=== PATIENT | female | born 1950 | race Caucasian/White ===

== ENCOUNTER 2017-08-05 11:07 | Inpatient (IN) | payer OTHER ==
[2017-08-05] VITALS (7 sets, daily range): BP systolic 103–146; BP diastolic 53–85; PULSE 71–80; TEMP 37–37.1; O2SAT 94–96; BMI 32.2
[~2017-08-05] VITALS: Ht 162.6 cm; Wt 86.4 kg
[2017-08-05 11:31] LABS: HEMATOCRIT 38.9 % (37-47); HEMOGLOBIN 13.4 g/dL (12.0-16.0); MEAN CELL VOLUME 90.3 fL (80-100); MEAN CORPUSCULAR HEMOGLOBIN 31.1 pg (25-34); MEAN CORPUSCULAR HGB CONC 34.4 g/dl (32-36); MEAN PLATELET VOLUME 11.1 fL (7.4-10.4); PLATELET COUNT 194 K/uL (130-400); RED CELL DISTRIBUTION WIDTH CV 12.8 % (11.5-14.5); RED CELL DISTRIBUTION WIDTH SD 42.2 fL (36.4-46.3); WHITE BLOOD COUNT 6.32 K/uL (4.8-10.8)
[2017-08-05 11:40] LABS: PTT PATIENT 27.2 SECONDS (21.0-31.0)
--- NOTE | 2017-08-05 11:43 | DIAGNOSTIC IMAGING REPORT ---
CHEST ONE VIEW PORTABLE CLINICAL HISTORY: A02 - chest pain COMPARISON STUDY: No previous studies for comparison. FINDINGS: The bones soft tissues and hemidiaphragms are normal. The cardiomediastinal silhouette is normal. The lungs are clear. The pulmonary vasculature is normal. IMPRESSION: Negative chest. The above report was generated using voice recognition software. It may contain grammatical, syntax or spelling errors. Electronically signed by: Mario Moon M.D. 08/05/2017 11:42 AM Dictated Date/Time: 08/05/2017 11:33 AM
[2017-08-05 11:55] LABS: ALBUMIN 3.8 gm/dl (3.4-5.0); CALCIUM 9.6 mg/dl (8.5-10.1); CREATININE 0.81 mg/dl (0.60-1.20); TOTAL PROTEIN 7.6 gm/dl (6.4-8.2)
[2017-08-05 11:56] LABS: CKMB 2.1 ng/ml (0.5-3.6)
[2017-08-05] MEDS ORDERED: FURO-85 PO (12:28)
[2017-08-05] MEDS ORDERED: COLC1CAP3 PO (12:28)
[2017-08-05] MEDS ORDERED: SUCR1TAB29 PO (12:28)
[2017-08-05] MEDS ORDERED: PANT40TA PO (12:28)
[2017-08-05] MEDS ORDERED: EMPA1TAB PO (12:28)
[2017-08-05] MEDS ORDERED: SERT-234 PO (12:28)
[2017-08-05] MEDS ORDERED: ATOR-24 PO (12:28)
[2017-08-05] MEDS ORDERED: LISI-526 PO (12:28)
[2017-08-05] MEDS ORDERED: NVLG SQ (12:28)
[2017-08-05] MEDS ORDERED: INSDGI SC (12:28)
[2017-08-05] MEDS ORDERED: METF-384 PO (12:28)
[2017-08-05] MEDS ORDERED: ALLO100T PO (12:28)
--- NOTE | 2017-08-05 12:46 | EMERGENCY ROOM VISIT NOTE ---
History Report prepared by Odilon: Alia Lion Under the Supervision of: Dr. Yoshi Boss M.D. First contact with patient: 11:08 Chief Complaint: CHEST PAIN Stated Complaint: CHEST PAIN Nursing Triage Summary: Patient arrives via ems from [facility] where patient saw her PCP. PT complaining of "chest pressure for the past couple months on and off, I have been getting more SOB on exertion." denies radiation, denies N/V. [facility] staff admin. 4 baby Aspirin and patient has received total of 4 nitro tablets. PMH: CAD with 30% blockage, unsure what vessel. History of Present Illness The patient is a 67 year old female who presents to the Emergency Room with complaints of constant chest pressure beginning this morning. The patient arrives via EMS from [facility] where she saw her PCP. She notes indigestion and shortness of breath but denies nausea or vomiting. The patient had a catheterization seven years which showed a 30% blockage. The patient had 4 baby Aspirin and 4 nitro tablets in route to ED. The nitroglycerin helped relieve some of her chest pain. The patient had a history of neuropathy and diabetes. Source of History: patient Onset: this morning Position: chest Quality: pressure Timing: constant Modifying Factors (Relieving): other (nitro) Associated Symptoms: + chest pain, + SOB, No nausea, No vomiting Review of Systems All systems have been listed, reviewed, and are negative other than those previously mentioned. Please see Additional Medical History Sheet. Past Medical & Surgical Medical Problems: (1) Asthma (2) Chest pain (3) Diabetes (4) Hypertension (5) Neuropathy Family History Cancer FH: diabetes mellitus FH: hypertension FH: seizures Social History Smoking Status: Former Smoker Smokeless Tobacco Use: No Alcohol Use: none Drug Use: none Housing Status: lives with family Occupation Status: retired Current/Historical Medications Scheduled Allopurinol (Zyloprim), 1 TAB PO DAILY Aspirin (Aspirin EC Low Dose), 81 MG PO DAILY Atorvastatin (Lipitor), 1 TAB PO DAILY Colchicine (Colchicine), 0.6 MG PO BID Empagliflozin (Jardiance), 10 MG PO DAILY Fluticasone Prop/Salmeterol (Advair Diskus 250/50 60 Dose), 1 PUFF INH BID Furosemide (Lasix), 1 TAB PO DAILY Gabapentin (Neurontin), 1 CAP PO TID Insulin Aspart (Novolog), 55 UNITS SQ TIDM Insulin Glargine (Lantus), 55 UNITS SC BID Lisinopril (Prinivil), 30 MG PO DAILY Metformin Hcl (Glucophage), 1,000 MG PO BID Pantoprazole (Protonix), 40 MG PO DAILY Sertraline (Zoloft), 1 TAB PO DAILY Sucralfate (Carafate), 1 TAB PO ACHS Scheduled PRN Albuterol Sulfate (Proair Respiclick), 2 PUFFS INH QID PRN for SOB/Wheezing Polyethylene Glycol 3350 (Miralax), 17 GM PO BID PRN for Constipation Allergies Coded Allergies: No Known Allergies (Unverified , 08/05/17) Physical Exam Vital Signs Date Time Temp Pulse Resp B/P (MAP) Pulse Ox O2 Delivery O2 Flow Rate FiO2 08/05/17 13:48 73 16 164/98 95 Room Air 08/05/17 12:12 79 18 134/78 95 Room Air 08/05/17 12:02 76 08/05/17 11:21 94 Room Air 08/05/17 11:21 87 18 153/68 94 Room Air 08/05/17 11:14 94 Room Air 08/05/17 11:14 36.9 87 18 153/68 94 Room Air 08/05/17 11:14 94 Room Air 08/05/17 11:12 80 18 153/68 95 Room Air Physical Exam GENERAL: Patient awake, alert, oriented x 3. Patient follows commands. Patient does not appear toxic. Patient is adequately hydrated and well- nourished. SKIN: No erythema, pallor, cyanosis or rash HEENT: Normal head, pupils equal, reactive to light and accommodation. LUNGS: Clear to auscultation. No wheezes, no rales, no rhonchi. HEART: No murmurs. No gallops. No rubs ABDOMEN: Obese. No masses, no rebound, no hepatomegaly or splenomegaly. EXTREMITIES: Vague tenderness in lower extremities which patient attributes to her neuropathy. No signs of trauma. No pedal or pretibial edema. No calf or thigh tenderness. NEUROLOGIC: Cranial nerves II-XII within normal limits. No gross motor sensory function deficits. Medical Decision & Procedures Laboratory Results 08/05/17 11:15 08/05/17 11:15 Test 12/27/17 11:15 08/05/17 13:08 Red Blood Count 4.31 M/uL (4.2-5.4) Mean Corpuscular Volume 90.3 fL (80-100) Mean Corpuscular Hemoglobin 31.1 pg (25-34) Mean Corpuscular Hemoglobin Concent 34.4 g/dl (32-36) RDW Standard Deviation 42.2 fL (36.4-46.3) RDW Coefficient of Variation 12.8 % (11.5-14.5) Mean Platelet Volume 11.1 fL (7.4-10.4) Prothrombin Time 10.0 SECONDS (9.0-12.0) Prothromb Time International Ratio 1.0 (0.9-1.1) Activated Partial Thromboplast Time 27.2 SECONDS (21.0-31.0) Partial Thromboplastin Ratio 1.0 Anion Gap 10.0 mmol/L (3-11) Est Creatinine Clear Calc Drug Dose 72.4 ml/min Estimated GFR () 87.1 Estimated GFR (Non- 75.2 BUN/Creatinine Ratio 27.5 (10-20) Calcium Level 9.6 mg/dl (8.5-10.1) Total Bilirubin 0.4 mg/dl (0.2-1) Aspartate Amino Transf (AST/SGOT) 25 U/L (15-37) Alanine Aminotransferase (ALT/SGPT) 44 U/L (12-78) Alkaline Phosphatase 97 U/L (45-117) Total Creatine Kinase 95 U/L (26-192) Creatine Kinase MB 2.1 ng/ml (0.5-3.6) Creatine Kinase MB Ratio 2.2 (0-3.0) Total Protein 7.6 gm/dl (6.4-8.2) Albumin 3.8 gm/dl (3.4-5.0) Globulin 3.8 gm/dl (2.5-4.0) Albumin/Globulin Ratio 1.0 (0.9-2) Beta-Hydroxybutyric Acid 1.74 mg/dL (0.2-2.81) Bedside Troponin I < 0.030 ng/ml (0-0.045) Laboratory results as stated above per my review. Medications Administered Medications (Trade) Dose Ordered Sig/Natali Route Start Time Stop Time Status Last Admin Dose Admin Heparin Sodium/ Dextrose (Heparin 25,000 Unit/500ml D5W) 25,000 unit STK-MED ONCE .ROUTE 08/05/17 14:20 08/05/17 14:21 DC 08/05/17 14:23 25,000 UNIT ECG Indication: chest pain Rate (beats per minute): 87 Rhythm: sinus rhythm Findings: PAC, ST depression (in II, III, avF, V5 and V6 ) ED Course 1228: Past medical records reviewed. The patient was evaluated in room A2. A complete history and physical examination was performed. 1318: Discussed the patient's case with Amada TOLEDO. The patient will be evaluated for further management. Medical Decision Differential diagnosis: Etiologies such as cardiac ischemia, aortic dissection, pulmonary embolism, pneumonia, pneumothorax, musculoskeletal, infections, pericarditis, myocarditis , esophageal rupture, gastrointestinal, as well as others were entertained. The patient is here with chest pain partially relieved by nitroglycerin. The patient was seen at [facility] earlier today and sent here because of the chest pain. The patient had a stress test about one week ago. She also had a prior catheterization. She has known cardiovascular disease. Multiple labs, EKG and imaging were obtained. Please see above. The patient has some minimal ST depression in her inferior and lateral leads. 2 troponins were obtained and negative. In light of her significant history she will require further evaluation in the hospital. I discussed care with the hospitalist. I also discussed care with the patient and significant other. Medication Reconcilliation Current Medication List: was personally reviewed by me Blood Pressure Screening Patient's blood pressure: Elevated blood pressure Blood pressure disposition: Referred to PCP (follow up with hospitalist ) Consults Time Called: 1315 Consulting Physician: Amada TOLEDO Returned Call: [phone] Discussed the patient's case with Amada TOLEDO. The patient will be evaluated for further management. Impression Primary Impression: Acute coronary syndrome Scribe Attestation The scribe's documentation has been prepared under my direction and personally reviewed by me in its entirety. I confirm that the note above accurately reflects all work, treatment, procedures, and medical decision making performed by me. Departure Information Dispostion Being Evaluated By Hospitalist Patient Instructions My [facility]
[2017-08-05] MEDS ORDERED: ONDANSETRON INJ 2 MG/ML 2 ML VIAL IV PRN (14:00)
[2017-08-05] MEDS ORDERED: ACETAMINOPHEN 325 MG TAB PO PRN (14:00)
[2017-08-05] MEDS ORDERED: ADVIN25/60 INH (14:02)
[2017-08-05] MEDS ORDERED: ALBU18002 INH (14:02)
[2017-08-05] MEDS ORDERED: POLY335019 PO (14:02)
[2017-08-05] MEDS ORDERED: ASPI-320 PO (14:02)
[2017-08-05] MEDS ORDERED: GABA400C PO (14:02)
[2017-08-05] MEDS ORDERED: PHARMACY GLYCEMIC MGMT CONSULT PRN (14:14)
[2017-08-05] MEDS ORDERED: GLUCOSE 40% GEL 15 GM TUBE PO PRN (14:15)
[2017-08-05] MEDS ORDERED: GLUCAGON FOR INJ 1 MG VIAL SQ PRN (14:15)
[2017-08-05] MEDS ORDERED: DEXTROSE 50% 50 ML SYR IV PRN (14:15)
[2017-08-05] MEDS ORDERED: GLUCOSE 10 TABS/TUBE PO PRN (14:15)
[2017-08-05] MEDS ORDERED: INSULIN HUMAN REGULAR PER UNIT 10 UNITS in SYRINGE 9.9 ML IV STA (14:16)
[2017-08-05] MEDS ORDERED: HEPARIN 25000 UNIT/500 ML D5W ONE (14:20)
[2017-08-05] MEDS ORDERED: METOPROLOL TARTRATE 25 MG TAB PO STA (14:24)
[2017-08-05] MEDS ORDERED: NovoLOG PER UNIT CHARGE SC STA (14:30)
--- NOTE | 2017-08-05 14:38 | Pharmacy Progress Note ---
Glycemic Control Intl Consult Date of Service Aug 05, 2017. Scope Glycemic Pharmacist consulted by Alicia Grande PA-C on 08/05/17 for glycemic control and to write orders per [facility] inpatient glycemic control protocol Objective Weight (Kilograms): 88.000 Accuchecks BSG (last 24hrs): Test 08/05/17 11:15 Random Glucose 383 mg/dl (70-99) Laboratory Data (last 24hrs) Test 08/05/17 11:15 Anion Gap 10.0 mmol/L BUN/Creatinine Ratio 27.5 Blood Urea Nitrogen 22 mg/dl Creatinine 0.81 mg/dl Potassium Level 4.0 mmol/L Sodium Level 133 mmol/L White Blood Count 6.32 K/uL Recent Pertinent Medications Outpatient Anti-diabetic Regimen: * Lantus 55 units SQ BID + Novolog 55 units SQ TIDM (doses confirmed with [email or web address], questionable compliance) * Metformin 1000 mg PO BID + empagliflozin 10 mg PO daily * A1c = 12.4 % (per provider history) Assessment & Plan ASSESSMENT: * 67 yr old T2DM female admitted with CP and hyperglycemia. * Severe hyperglycemia at time of admission, 383 mg/dL. Pt given one time IV bolus of regular insulin. * Patient takes significant doses of insulin as an outpatient (~275 units/day) plus orals with poor glycemic control evidenced; A1c of 12.4%. Patient did not take am Lantus dose today, therefore I have ordered STA dose of 55 units upon arrival to floor. I will utilize a Lantus dose per scale at HS since patient is NPO after midnight and compliance with home regimen is questionable. * Will utilize higher goal range initially per patient may experience hypoglycemia at a higher BSG value since A1c is extremely elevated. PLAN FOR INPATIENT GLYCEMIC CONTROL: * Holding outpatient oral diabetes medications * Regular insulin 10 units IV x 1 (@ ER) * Basal insulin * Lantus 55 units SQ TYRELL upon arrival to floor * Lantus 25-45 units SQ HS * 25 units for BSG <110, 35 units for BSG 110-180, 45 units for BSG > 180 * Correctional Insulin with NOVOLOG per scale ACHS or Q6hrs while NPO * Goal Range: Low 120 mg/dL - High 150 mg/dL * Correction Factor: 10 mg/dL/unit * Nutritional / Prandial insulin per carb ratio of 1 unit per 3 grams CHO consumed * Please note that the plan above was derived based on current level of insulin resistance and hospital stress. These recommendations are appropriate for inpatient admission only. Plan of care upon discharge will need to be reassessed to avoid potential outpatient hypo/hyperglycemia. Thank you.
--- NOTE | 2017-08-05 14:42 | CARDIOLOGY CONSULTATION ---
DATE OF CONSULTATION: 08/05/2017 CONSULTATION FOR: [facility] REASON FOR CONSULTATION: Chest pain with an abnormal stress test. HISTORY OF PRESENT ILLNESS: This is a 67-year-old female diabetic, who is not well controlled. Her last hemoglobin A1c was 12. She has been followed by Dr. Payton. Recently, she was having some dyspnea and mild chest discomfort and a nuclear stress test was ordered. That study was completed at [facility]. The report is scanned to [facility] and indicates a medium sized defect in the anterior myocardium, suggesting ischemia. The patient came for a followup today at the clinic and was seen by Vaishnavi Dent. She states that on the ride over to the clinic, she began to have chest pressure and discomfort. She was given 1 sublingual nitroglycerin, which dissipated her chest pain. She was then transferred to the Emergency Department. She still has chest pain, which is 1-2/10, but she appears to be quite comfortable. Her point of care troponin was negative. Her EKG here suggests an old anterior septal wall myocardial infarction and nonspecific ST and T-wave changes. She denies shortness of breath. She has had no dizziness or lightheadedness. ALLERGIES: No known medical allergies. PAST MEDICAL HISTORY: As outlined above, the patient is a type 2 diabetic, who has in the past not been well controlled. She has diabetic polyneuropathy and diabetic nephropathy with proteinuria. She has been treated for hypertension. She has a history of obstructive sleep apnea and GERD. She has a remote history of cigarette smoking and according to records, has mild COPD. FAMILY MEDICAL HISTORY: Significant for diabetes on her father side and heart disease on her mother side. SOCIAL HISTORY: She is currently a nonsmoker. She stopped in 2000. REVIEW OF SYSTEMS: A 10-point review of systems is negative except for the history of chief complaint. PHYSICAL EXAMINATION: GENERAL: She is alert and oriented, resting comfortably. VITAL SIGNS: Blood pressure is 130/80 and pulse is regular at 70 beats per minute. She is afebrile. HEENT: She is normocephalic. Pupils are equal and reactive to light. Extraocular muscles are intact bilaterally. NECK: The neck veins are flat. Carotids have good upstrokes bilaterally without bruits. Thyroid is nonpalpable. RESPIRATORY: Breath sounds equal bilaterally and clear to auscultation. CARDIOVASCULAR: Heart has a regular rhythm. Normal S1 and S2. No S3 or S4. No cardiac rubs or murmurs. GASTROINTESTINAL: Abdomen is soft and nontender without organomegaly. EXTREMITIES: Free of edema, digit clubbing, or cyanosis. NEUROLOGIC: Grossly intact. SKIN: Warm to touch. LYMPH NODES: Negative to palpation. IMPRESSION: 1. Chest pain, most likely angina. 2. Recent abnormal pharmacologic nuclear stress test with an anterior reversible defect. 3. EKG shows an old anterior septal wall myocardial infarction. 4. 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 5. Diabetes mellitus. 6. Mild chronic obstructive pulmonary disease. 7. Obstructive sleep apnea. RECOMMENDATIONS: The patient appears to be comfortable at this point. I would recommend that we admit her and start her on intravenous heparin. I would also start her on a beta chasity and nitro paste. Her first set of cardiac markers were negative and her EKG does not show any significant acute changes. Unless her clinical course worsens, we will plan on performing cardiac catheterization in the morning. I have explained the risks, benefits and intent of the procedure to the patient including the potential for catheter based intervention such as balloon angioplasty and intracoronary stenting. We will have further recommendations following the above.
--- NOTE | 2017-08-05 15:25 | NUR ---
arrived from the ED via liter for admission to room 205, awake and alert, ambulated to bed, continues to complain of some chest pressure 3/10, BP 146/85, skin warm and dry, color pink, respirations non-labored, bilateral breath sounds clear, O2 saturation on room air is 95%, conveyor monitor applied, admission nursing assessment complete, code word established, fall safety paper signed
[2017-08-05] MEDS ORDERED: INSULIN GLARGINE SC ONE (15:30)
[2017-08-05] MEDS ORDERED: HEPARIN 25,000 UNIT/500ML D5W 500 ML IV PRN (16:00)
[2017-08-05] MEDS: NITROGLYCERIN OINT 2% 1GM PACKET EXT SCH ×2 (17:25→23:36)
[2017-08-05] MEDS: SUCRALFATE 1 GM TAB PO SCH ×2 (17:25→20:45)
--- NOTE | 2017-08-05 17:27 | History and Physical ---
History & Physical Date & Time of Service: Aug 05, 2017 ~ 13:30 Chief Complaint: Chest Pain Primary Care Physician: Estela Fields D.O. History of Present Illness 67 year old female who was referred to the ED from the cardiology office for chest pain. Patient reports a long standing history of chest pain and exertional shortness of breath for the past several months. Patient underwent stress testing last week that was abnormal suggesting anterior ischemia. Patient was on her way to a scheduled cardiology appointment today to discuss the results when she developed chest pain in the car. Patient reports this episode was the most severe she has experienced. She reports it was located midsternally and describes it as a pressure. She rated it #6/10. No radiation of the pain into the neck, jaw, or arm. She reports associated lightheadedness and dizziness. No syncopal events. She denies nausea and diaphoresis. She was given SL nitro in the cardiology office and has significant improvement in the pain however not resolution. EKG was obtained that showed ST depressions in the inferior leads. She was then referred to the ED for further evaluation. Patient reports she otherwise has been feeling well recently. She denies lower extremity edema and orthopnea. No fevers or chills. She denies abdominal pain, vomiting, or diarrhea. No urinary symptoms. In the ED, EKG was obtained showing mild ST depressions in the anterolateral leads. Initial troponin is negative. Patient is hemodynamically stable. 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 A 30% ostial right coronary artery stenosis reported otherwise no significant obstructive disease reported. Status: Chronic (2) History of carpal tunnel release Status: Chronic (3) Hx of tonsillectomy Status: Chronic (4) S/P MIKE (total abdominal hysterectomy) Status: Chronic Family History Stroke MOTHER BROTHER Social History Smoking Status: Former Smoker Alcohol Use: none Immunizations History of Tetanus Vaccine?: Yes Tetanus Immunization Date: Jul 20, 2007 History of Pneumococcal: Yes Pneumococcal Date: Jun 08, 2015 Allergies Coded Allergies: No Known Allergies (Unverified , 08/05/17) Home Medications Scheduled Allopurinol (Zyloprim), 1 TAB PO DAILY Aspirin (Aspirin EC Low Dose), 81 MG PO DAILY Atorvastatin (Lipitor), 1 TAB PO DAILY Colchicine (Colchicine), 0.6 MG PO BID Empagliflozin (Jardiance), 10 MG PO DAILY Fluticasone Prop/Salmeterol (Advair Diskus 250/50 60 Dose), 1 PUFF INH BID Furosemide (Lasix), 1 TAB PO DAILY Gabapentin (Neurontin), 1 CAP PO TID Insulin Aspart (Novolog), 55 UNITS SQ TIDM Insulin Glargine (Lantus), 55 UNITS SC BID Lisinopril (Prinivil), 30 MG PO DAILY Metformin Hcl (Glucophage), 1,000 MG PO BID Pantoprazole (Protonix), 40 MG PO DAILY Sertraline (Zoloft), 1 TAB PO DAILY Sucralfate (Carafate), 1 TAB PO ACHS Scheduled PRN Albuterol Sulfate (Proair Respiclick), 2 PUFFS INH QID PRN for SOB/Wheezing Polyethylene Glycol 3350 (Miralax), 17 GM PO BID PRN for Constipation Review of Systems ROS per HPI, all other systems reviewed and negative Physical Exam Vital Signs Date Time Temp Pulse Resp B/P (MAP) Pulse Ox O2 Delivery O2 Flow Rate FiO2 08/05/17 15:39 37.0 71 20 146/85 95 Room Air 08/05/17 15:16 36.9 82 18 152/75 94 08/05/17 14:49 82 18 152/75 94 Room Air 08/05/17 13:48 73 16 164/98 95 Room Air 08/05/17 12:12 79 18 134/78 95 Room Air 08/05/17 12:02 76 08/05/17 11:21 94 Room Air 08/05/17 11:21 87 18 153/68 94 Room Air 08/05/17 11:14 94 Room Air 08/05/17 11:14 36.9 87 18 153/68 94 Room Air 08/05/17 11:14 94 Room Air 08/05/17 11:12 80 18 153/68 95 Room Air General Appearance: WD/WN, no apparent distress Head: normocephalic, atraumatic Eyes: normal inspection, EOMI, sclerae normal ENT: hearing grossly normal, + pertinent finding (mucous membranes moist) Neck: supple, no JVD, trachea midline Respiratory/Chest: lungs clear, normal breath sounds, no respiratory distress Cardiovascular: regular rate, rhythm, no edema, normal peripheral pulses Abdomen/GI: normal bowel sounds, non tender, soft, no organomegaly Extremities/Musculoskelatal: normal inspection, no calf tenderness Neurologic/Psych: no motor/sensory deficits, alert, normal mood/affect, oriented x 3 Skin: normal color, warm/dry Diagnostics Laboratory Results Results Past 24 Hours Test 08/05/17 11:15 08/05/17 11:24 08/05/17 13:08 08/05/17 16:21 Range/Units White Blood Count 6.32 4.8-10.8 K/uL Red Blood Count 4.31 4.2-5.4 M/uL Hemoglobin 13.4 12.0-16.0 g/dL Hematocrit 38.9 37-47 % Mean Corpuscular Volume 90.3 80-100 fL Mean Corpuscular Hemoglobin 31.1 25-34 pg Mean Corpuscular Hemoglobin Concent 34.4 32-36 g/dl RDW Standard Deviation 42.2 36.4-46.3 fL RDW Coefficient of Variation 12.8 11.5-14.5 % Platelet Count 194 130-400 K/uL Mean Platelet Volume 11.1 7.4-10.4 fL Prothrombin Time 10.0 9.0-12.0 SECONDS Prothromb Time International Ratio 1.0 0.9-1.1 Activated Partial Thromboplast Time 27.2 21.0-31.0 SECONDS Partial Thromboplastin Ratio 1.0 Sodium Level 133 136-145 mmol/L Potassium Level 4.0 3.5-5.1 mmol/L Chloride Level 99 98-107 mmol/L Carbon Dioxide Level 24 21-32 mmol/L Anion Gap 10.0 3-11 mmol/L Blood Urea Nitrogen 22 7-18 mg/dl Creatinine 0.81 0.60-1.20 mg/dl Est Creatinine Clear Calc Drug Dose 72.4 ml/min Estimated GFR () 87.1 Estimated GFR (Non- 75.2 BUN/Creatinine Ratio 27.5 10-20 Random Glucose 383 70-99 mg/dl Calcium Level 9.6 8.5-10.1 mg/dl Total Bilirubin 0.4 0.2-1 mg/dl Aspartate Amino Transf (AST/SGOT) 25 15-37 U/L Alanine Aminotransferase (ALT/SGPT) 44 12-78 U/L Alkaline Phosphatase 97 45-117 U/L Total Creatine Kinase 95 26-192 U/L Creatine Kinase MB 2.1 0.5-3.6 ng/ml Creatine Kinase MB Ratio 2.2 0-3.0 Total Protein 7.6 6.4-8.2 gm/dl Albumin 3.8 3.4-5.0 gm/dl Globulin 3.8 2.5-4.0 gm/dl Albumin/Globulin Ratio 1.0 0.9-2 Beta-Hydroxybutyric Acid 1.74 0.2-2.81 mg/dL Bedside Troponin I < 0.030 < 0.030 0-0.045 ng/ml Bedside Glucose 146 70-90 mg/dl Diagnostic Radiology CXR IMPRESSION: Negative chest. 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 Grajeda - planning on cardiac cath tomorrow DM - uncontrolled, hgb a1c 12.4 07/17/17 - did not take any insulin today - glucose 383 - on large amounts of insulin and oral agents and home - will hold oral agents while hospitalized and utilize basal / bolus / SSI while hospitalized HTN - BP controlled, continue lisinopril and furosemide - starting metoprolol as above COPD - stable, no signs of acute exacerbation - continue home inhalers GERD - continue PPI and Carafate DVT PROPHYLAXIS - on heparin gtt DISPO - In my clinical judgment this beneficiary meets acute admission criteria, established by [facility], that includes being hospitalized through two midnights. Attending Addendum: The patient was seen and examined Has been complaining of Exertional Chest pain for a while Now having pain at rest associated with SOB and Swetting O/E Minimal distress at rest Hemodynamically stable Chest-clear to auscultate bilaterally Heart-regular Abdomen-benign Extremities-negative for any edema Labs and imaging studies were reviewed Has Angina with EKG changes Will start Heparin,BB and Nitro Likely to have Cardiac Cath tomorrow Agree with the assessment and plan. Dr Jayda Horowitz Advanced Directives Existing Living Will: No Existing Power of Grain Trader: Yes VTE Prophylaxis VTE Risk Assessment Done? Y/N: Yes Risk Level: Moderate
--- NOTE | 2017-08-05 17:30 | NUR ---
dangled for supper ate 100% of meal, tolerated well
[2017-08-05] MEDS: INSULIN ASPART 100 UNITS/ML 3 ML PEN SC SCH ×3 (17:50→23:45)
--- NOTE | 2017-08-05 19:35 | NUR ---
complains of 7/10 chest pressure with numb feeling in right arm, state EKG done, BP 137/71 SL Nitro given as ordered nasal O2 applied at 2L/min.
[2017-08-05] MEDS: NITROGLYCERIN 0.4 MG SL PER TAB CHARGE SL PRN ×3 (19:42→19:55)
--- NOTE | 2017-08-05 19:47 | NUR ---
BP 109/57 pain decreased to 5/10 SL Nitro given
--- NOTE | 2017-08-05 19:54 | NUR ---
BP 103/58 pain easing but still 4/10
[2017-08-05] MEDS ORDERED: MoRPHine SULFATE 2 MG/ML CARP IV PRN (20:15)
--- NOTE | 2017-08-05 20:15 | NUR ---
Dr. Horowitz aware of episode of chest pain and treatment given, new order received
[2017-08-05] MEDS: FLUTICASONE/SALMETEROL 250/50 (ADVAIR) 14 PUFF/1 INHALER INH SCH (20:45)
--- NOTE | 2017-08-05 20:45 | NUR ---
resting in bed states pain has eased but arm still 3/10 discomfort, medicated with Morphine 2 mg IV as ordered
[2017-08-05] MEDS: COLCHICINE 0.6 MG TAB PO SCH (20:46)
[2017-08-05] MEDS: GABAPENTIN 400 MG CAP PO SCH (20:46)
[2017-08-05 20:51] LABS: CKMB 1.6 ng/ml (0.5-3.6)
[2017-08-05 20:53] LABS: PTT PATIENT 38.5 SECONDS (21.0-31.0)
[2017-08-05] MEDS ORDERED: INSULIN GLARGINE SC SCH (21:00)
[2017-08-05] MEDS ORDERED: METOPROLOL TARTRATE 25 MG TAB PO SCH (21:00)
--- NOTE | 2017-08-05 21:20 | NUR ---
resting in bed with eyes closed, verbalizes good pain relief, will continue to monitor
[2017-08-05] MEDS ORDERED: HEPARIN IV BOLUS 5,000 UNIT in SYRINGE 0 ML IV ONE (21:30)
[2017-08-05] MEDS: METOPROLOL TARTRATE 25 MG TAB PO SCH (22:30)
[2017-08-05] MEDS: SODIUM CHLORIDE 0.9% 1000ML 1,000 ML IV SCH (23:36)
[2017-08-06] VITALS (18 sets, daily range): BP systolic 102–154; BP diastolic 52–89; PULSE 61–78; TEMP 36.5–37.2; O2SAT 89–100; Ht 162.6 cm; Wt 86.4 kg
--- NOTE | 2017-08-06 00:28 | NUR ---
Pt Alert and oriented when awoken. Asleep in bed at this time. 3L Nasal Canula with oxygen saturation of 96%. No insulin was needed at 0000 due to a blood sugar of 148. Pt is not complaining of any chest pain at this time. Normal Sinus Rhythm on Monitor. Heparin Rate is 29ml/hr or 1450u/hr. PTT is scheduled for 3:30am. NSS running at 88ml/hr. Pt is NPO for Cath surgery in the morning. Moderate Sedation and Patient Check List started. Call saenz is within reach. Will continue to monitor.
[2017-08-06 00:56] LABS: CKMB 1.5 ng/ml (0.5-3.6)
[2017-08-06] MEDS ORDERED: INSULIN ASPART 100 UNITS/ML 3 ML PEN SC SCH (03:00)
[2017-08-06 03:52] LABS: BASO % 0.4 %; BASO ABS # 0.03 K/uL (0-0.2); EOS % 2.3 %; EOS ABS # 0.17 K/uL (0-0.5); HEMATOCRIT 38.4 % (37-47); HEMOGLOBIN 13.2 g/dL (12.0-16.0); IG# 0.02 K/uL (0.00-0.02); LYMPH % 48.8 %; LYMPH ABS # 3.62 K/uL (1.2-3.4); MEAN CELL VOLUME 90.6 fL (80-100); MEAN CORPUSCULAR HEMOGLOBIN 31.1 pg (25-34); MEAN CORPUSCULAR HGB CONC 34.4 g/dl (32-36); MEAN PLATELET VOLUME 11.4 fL (7.4-10.4); MONO % 6.7 %; NEUT % 41.5 %; NEUT ABS # 3.08 K/uL (1.4-6.5); PLATELET COUNT 172 K/uL (130-400); RED CELL DISTRIBUTION WIDTH CV 12.9 % (11.5-14.5); RED CELL DISTRIBUTION WIDTH SD 42.2 fL (36.4-46.3); WHITE BLOOD COUNT 7.42 K/uL (4.8-10.8)
[2017-08-06 04:16] LABS: PTT PATIENT 93.7 SECONDS (21.0-31.0)
[2017-08-06 04:17] LABS: CALCIUM 9.1 mg/dl (8.5-10.1); CREATININE 0.69 mg/dl (0.60-1.20); POTASSIUM 3.5 mmol/L (3.5-5.1)
--- NOTE | 2017-08-06 04:40 | NUR ---
Pt Alert and oriented when awoken. Asleep in bed at this time. 3L Nasal Canula with oxygen saturation of 98%. 2 units of Novalog was given at 3:00 due to a blood sugar of 169. Pt is not complaining of any chest pain at this time, just states that she is uncomfortable. Normal Sinus Rhythm on Monitor. Heparin Rate is being held for 60 minutes due to a PTT of 93.7. Provider will be notified due to surgery today. Pt will be restarted on the Heparin Drip at 5:20 at 26ml/hr or 1300 units/hr. PTT is in for 11:30am per protocol. NSS running at 88ml/hr. Pt is NPO for Cath surgery in the morning. Moderate Sedation and Patient Check List started. Call saenz is within reach. Will continue to monitor.
[2017-08-06] MEDS: SUCRALFATE 1 GM TAB PO SCH ×4 (05:55→21:32)
[2017-08-06] MEDS: NITROGLYCERIN OINT 2% 1GM PACKET EXT SCH ×2 (05:55→11:56)
[2017-08-06] MEDS: INSULIN ASPART 100 UNITS/ML 3 ML PEN SC SCH ×4 (06:07→21:36)
--- NOTE | 2017-08-06 08:00 | NUR ---
A: Awake, alert and oriented X4 resting quietly in bed in no acute distress. Initial assessment completed, refer to EMR for details. NSR on cardiac sonographer. Assisted out of bed to toilet with min assist of one to void. Heparin continues to infuse as per protocol. Remains NPO pending cardiac catheter today. Dr. Johns notified of need to adjust lantus insulin, new orders received. Call saenz within easy reach. Will continue to monitor.
[2017-08-06] MEDS ORDERED: NURSING VERBAL MED ORDER ONE ×2 (08:45→15:45)
[2017-08-06] MEDS: FLUTICASONE/SALMETEROL 250/50 (ADVAIR) 14 PUFF/1 INHALER INH SCH ×2 (08:47→21:32)
[2017-08-06] MEDS: COLCHICINE 0.6 MG TAB PO SCH ×2 (08:49→21:33)
[2017-08-06] MEDS: METOPROLOL TARTRATE 25 MG TAB PO SCH ×2 (08:49→21:33)
[2017-08-06] MEDS: GABAPENTIN 400 MG CAP PO SCH ×3 (08:49→21:33)
[2017-08-06] MEDS: ASPIRIN 81 MG ECTAB PO SCH (08:49)
[2017-08-06] MEDS: ALLOPURINOL 100 MG TAB PO SCH (08:49)
[2017-08-06] MEDS: SERTRALINE HCL 100 MG TAB PO SCH (08:49)
[2017-08-06] MEDS: FUROSEMIDE 20 MG TAB PO SCH (08:49)
[2017-08-06] MEDS: ATORVASTATIN 40 MG TAB PO SCH (08:49)
[2017-08-06] MEDS: PANTOprazole SOD 40 MG TAB PO SCH (08:49)
[2017-08-06] MEDS: INSULIN GLARGINE SC SCH ×3 (08:50→21:37)
[2017-08-06] MEDS: LISINOPRIL 10 MG TAB PO SCH (08:50)
[2017-08-06] MEDS ORDERED: INSULIN GLARGINE SC ONE (09:00)
[2017-08-06] MEDS: SODIUM CHLORIDE 0.9% 1000ML 1,000 ML IV SCH ×2 (11:22→15:17)
--- NOTE | 2017-08-06 12:00 | NUR ---
A: Remains NPO pending cardiac cath. Offers no complaints.
--- NOTE | 2017-08-06 12:26 | NUR ---
DIABETES: Pt seen on clinical alert for BS > 200mg/dl frequently past 2-3 months. See DM network & DM teaching interventions. Addendum: 08/06/17 at 1227 by Ruby Shabazz RN Amended: Links added.
[2017-08-06 12:50] LABS: PTT PATIENT 48.3 SECONDS (21.0-31.0)
--- NOTE | 2017-08-06 13:37 | Pharmacy Progress Note ---
Glycemic Control Progress Note Date of Service Aug 06, 2017. Scope Glycemic Pharmacist consulted for glycemic control to write orders per [facility] inpatient glycemic control protocol. Objective Accuchecks BSG (last 24hrs): Test 08/05/17 16:21 08/05/17 20:38 08/05/17 23:43 08/06/17 02:59 Bedside Glucose 146 mg/dl (70-90) 132 mg/dl (70-90) 148 mg/dl (70-90) 169 mg/dl (70-90) Test 08/06/17 03:37 08/06/17 05:57 08/06/17 11:55 Random Glucose 189 mg/dl (70-99) Bedside Glucose 188 mg/dl (70-90) 206 mg/dl (70-90) HbA1c: 12.4% per provider Recent Pertinent Medications The patient is currently receiving: * Basal insulin: Lantus 10 units x 1 given this AM rather than 40 units ordered by Glycemic Consult * Correctional Insulin: Novolog Correction per scale ACHS Goal Range: Low 120 mg/dL - High 150 mg/dL Correction Factor: 10 mg/dL/unit * Prandial insulin: Per carb ratio of 1 unit per 3 grams CHO consumed * Oral Agents: None currently Outpatient Anti-Diabetic Meds Lantus 55 units SQ BID Novolog 55 units TID w/ meals Metformin 1gm PO BID Empagliflozin 10mg PO daily Assessment & Plan ASSESSMENT: 08/05/17 * 67 yr old T2DM female admitted with CP and hyperglycemia. * Severe hyperglycemia at time of admission, 383 mg/dL. Pt given one time IV bolus of regular insulin. * Patient takes significant doses of insulin as an outpatient (~275 units/day) plus orals with poor glycemic control evidenced; A1c of 12.4%. Patient did not take am Lantus dose today, therefore I have ordered STA dose of 55 units upon arrival to floor. I will utilize a Lantus dose per scale at HS since patient is NPO after midnight and compliance with home regimen is questionable. * Will utilize higher goal range initially per patient may experience hypoglycemia at a higher BSG value since A1c is extremely elevated 08/06/17 * Over the past 24 hrs patient has received 111 SQ insulin + 10 units IV and BSG down to 169-188 this AM * Fasting BSG elevated this AM w/ 90 units of Lantus on board, FBS 188 * Currently NPO for cardiac cath this afternoon * Glycemic [facility] had ordered 40 units of Lantus x 1 this AM (~ 30% reduction in home dose due to NPO status), however hospitalist reduced dose to 10 units (~80 % reduction in home dose). Patient's BSGs climbing despite correctional insulin administered. Most likely BSG control will continue to decline. She will likely be basal deficient for 12-24 hrs. PLAN FOR INPATIENT GLYCEMIC CONTROL: * Recommended Lantus 40 units SQ this AM prior to surgery. Ongoing Lantus order : 45 units SQ BID * Continuing correction factor of 10 mg/dl/unit * Continuing carb ratio of 1 unit per 3 grams CHO consumed * Continuing goal range of Low 120 mg/dL - High 150 mg/dL * Add BSG checks at 0000 and 0400 tonight with SQ Novolog coverage * Please note that the plan above was derived based on current level of insulin resistance and hospital stress. These recommendations are appropriate for inpatient admission only. Plan of care upon discharge will need to be reassessed to avoid potential outpatient hypo/hyperglycemia. Thank you.
[2017-08-06] MEDS ORDERED: MIDAZOLAM HCL 1 MG/ML 2ML VIAL ONE (13:48)
[2017-08-06] MEDS ORDERED: NITROGLYCERIN/D5W 100MCG/ML 20ML SYR ONE (13:49)
[2017-08-06] MEDS ORDERED: HEPARIN SOD (PORCINE) 1000 UNIT/ML 10 ML VIAL ONE (13:49)
[2017-08-06] MEDS ORDERED: NiCARDipine HCL INJ 2.5 MG/ML 10 ML AMP ONE (13:49)
--- NOTE | 2017-08-06 14:00 | NUR ---
A: Off unit for cardiac cath via bed in no acute distress.
[2017-08-06] MEDS ORDERED: SODIUM CHLORIDE 0.9% 1000ML 250 ML IV PRN (14:44)
[2017-08-06] MEDS ORDERED: ONDANSETRON INJ 2 MG/ML 2 ML VIAL IV PRN (14:45)
[2017-08-06] MEDS ORDERED: ATROPINE SULFATE 0.1 MG/ML 5ML SYR IV PRN (14:45)
[2017-08-06] MEDS ORDERED: ACETAMINOPHEN 325 MG TAB PO PRN (14:45)
--- NOTE | 2017-08-06 14:56 | Post Sedation Assessment ---
Post Sedation Assessment General Date of Sedation Aug 06, 2017. 14:45 Vital Signs: Vital Signs Past 12 Hours Date Time Temp Pulse Resp B/P (MAP) Pulse Ox O2 Delivery O2 Flow Rate FiO2 08/06/17 14:45 Room Air 08/06/17 14:40 60 16 150/79 (102) 97 Room Air 08/06/17 12:00 Nasal Cannula 2.0 08/06/17 11:17 36.7 61 18 129/58 (81) 94 Nasal Cannula 2.0 08/06/17 08:00 Nasal Cannula 2.0 08/06/17 07:38 36.9 68 19 126/77 (93) 96 Nasal Cannula 2.0 08/06/17 04:38 36.5 68 20 114/73 (87) 97 Nasal Cannula 3.0 08/06/17 04:00 Room Air 08/06/17 04:00 96 Room Air Post Procedure Recovery Score Activity: (2) Moves 4 extremities * Respiration: (2) Deep breath/cough Circulation: (2) +/-20% PreAnes Value Consciousness: (2) Fully Awake Oxygen Saturation: (2) > 92% On Room Air Post Anesthesia Score: 10 Discharge Sedation Level of Care: Phase I Post Sedation Plan On clinical assessment, the patient appears to have tolerated the sedation without complications. Patient is recovering as anticipated. Patient will continue to be monitored by nursing and may be discharged when sedation discharge criteria are met per below protocol. Upon Completions of procedure and additional 15 minutes continue every 5 minute vital signs and the P.A.R. score; then discharge to a Phase I or Fast Track to Phase II per the following guidelines: * Discharge Patient to appropriate Phase II area if PAR is 8 or greater or return to pre- procedure baseline. The post - procedure orders will be as directed. * If PAR score is less than 8 or not return to pre-procedure baseline then patient will follow Phase I monitoring till PAR is reached for Phase II. The Phase I may be done in procedure room or may call to secure a Phase I area. * If naloxone or flumazenil are used for reversal, hold in Phase I for an additional 60 -120 minutes before discharge to Phase II. Please call the Sedation Physician to re-evaluate and complete post-note for discharge to Phase II area. Do NOT discharge from procedure sedation or Phase 1 until post- sedation evaluation note is complete by procedure /sedation MD Sedation Discharge Instructions to be given to the patient at discharge to home.
--- NOTE | 2017-08-06 14:56 | Pre Sedation Assessment ---
Pre Sedation Assessment General Date of Sedation: Aug 06, 2017. 14:22 Vital Signs Past 12 Hours Date Time Temp Pulse Resp B/P (MAP) Pulse Ox O2 Delivery O2 Flow Rate FiO2 08/06/17 14:45 Room Air 08/06/17 14:40 60 16 150/79 (102) 97 Room Air 08/06/17 12:00 Nasal Cannula 2.0 08/06/17 11:17 36.7 61 18 129/58 (81) 94 Nasal Cannula 2.0 08/06/17 08:00 Nasal Cannula 2.0 08/06/17 07:38 36.9 68 19 126/77 (93) 96 Nasal Cannula 2.0 08/06/17 04:38 36.5 68 20 114/73 (87) 97 Nasal Cannula 3.0 08/06/17 04:00 Room Air 08/06/17 04:00 96 Room Air Review Cardiovascular: regular rate, rhythm Lungs: lungs clear Pre-Sedation Airway Assessment Smoking Status: Former Smoker Hx of Sleep Apnea: Yes Hx of difficult intubation: No Short Thick Neck: No Thyro-mental Distance: < or =3 Finger Breadths Oral Cavity: Dentures Mallampati Classification: Class I ASA Classification: Class II NPO Status Date of Last Intake of Fluids: Aug 05, 2017 Time of Last Intake of Fluids: 2300 Date of Last Intake of Solids: Aug 05, 2017 Time of Last Intake of Solids: 2300 Procedure Planning Contraindications for Sedation: None Current Medications Reviewed: Yes Notes The planned sedation has been discussed with the patient. Informed Consent was obtained. I have identified the patient, determined the appropriateness of sedation and have assessed the patient immediately prior to the procedure. All medicine(s) and interventions are by my order.
--- NOTE | 2017-08-06 15:00 | Cardiac Catheterization ---
Procedure Note Procedure Date Aug 06, 2017. Pre-Procedure Diagnosis Angina AUC Score 9 Post-Procedure Diagnosis Mild CAD Procedure(s) Performed Coronary Angiography, Left Heart Cath, LV Angiography Production Control Pegboard Clerk Dr. Grajeda [employer] Sheets Supervisor(s) None Estimated Blood Loss None Medication(s) Versed, Lidocaine 1% Summary of Findings See dictated report Hemodynamics Rest Ao: 135/60 Final Ao: 130/83 LV: 132/13 Recommendations Medical therapy and/or Counseling Specimens None Radiation Exposure (mGy) 940 Contrast (mls) 123 Procedural Complication(s) None Disposition PCU ACC Data Cardiac Status Clinical evaluation leading to the procedure CAD Presntation: Unstable angina Anginal Classification: CCS II Heart Failure: No Cardiogenic Shock w/in 24Hrs: No Cardiac Arrest w/in 24Hrs: No Imaging studies past 6 months: Yes Stress studies past 6 months: Yes Stress Testing w/SPECT MPI: Yes - Positive Coronary Anatomy Dominant: Left Left Main (% Stenosis): Ostial (20) LAD (% Stenosis): Proximal (20) Circumflex (% Stenosis): Mid (50) RCA (% Stenosis): Normal R PDA (% Stenosis): Mid (50) Left Ventricular Angiography EF (%): 60 Diagnostic Status: Urgent Closure Device Percutaneous Entry Location: Femoral Closure Device: Mynx Recommendations: Medical therapy and/or Counseling
--- NOTE | 2017-08-06 15:10 | CARDIAC CATH REPORT ---
PROCEDURES: 1. Left heart catheterization. 2. Coronary angiography. 3. Left ventriculography. HISTORY: This is a 67-year-old female who had an abnormal stress test as an outpatient and then presented with chest pain to our office. She was referred for admission and is to undergo a cardiac catheterization. PROCEDURE SUMMARY: After informed consent was obtained, the patient was taken to the cardiac catheterization lab, where access was obtained using retrograde Seldinger technique. Preformed 5-Andorran diagnostic catheters were utilized for the coronary angiograms. A 5-Andorran pigtail catheter was utilized for the left ventriculogram. Following the procedure, the patient had the arterial site closed with a Mynx device and was returned to her room in stable condition. 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 We were able to cannulate the LAD from the left coronary cusp. There was some minor tapering at the origin of the left coronary artery with minor luminal irregularities. The artery is widely patent, but does become small in caliber distally. The right coronary artery appears to be either calcified in its proximal segment or this could be the skeleton of the coronary stent. The patient has no prior history given of the stent, but we do not have her full cardiac history as she has had previous procedures done at [facility]. Selective injections of the right coronary artery, however, reveal it to be widely patent. The mid portion of the PDA has a 50% stenosis. The left circumflex artery is found in the right coronary cusp. Selective injections of the anomalous left circumflex artery reveal a 50%-60% stenosis in its proximal segment with the remainder of the artery having minor luminal irregularities. LEFT VENTRICULOGRAM: The left ventricle is of normal size with normal systolic function. The estimated left ventricular ejection fraction is 60%. The LVEDP is 13. The mitral valve is competent. 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 The left circumflex artery has a 50% stenosis in its mid segment. Right coronary artery is dominant. The right coronary artery either has calcifications proximally or there could be a previous intracoronary stent. The right coronary artery is widely patent. The mid PDA has a 50% stenosis. The LAD has tapering at its origin from the aorta. There is diffuse minor disease proximally with the artery becoming smaller, which travels distally to the apex of the heart. There is normal left ventricular systolic function. RECOMMENDATIONS: The recommendations are for medical management of the patient's coronary artery disease.
--- NOTE | 2017-08-06 15:12 | NUR ---
A: Return from minilab operator via bed in no acute distress. Drowsy, awakens for short questions then falls back to sleep. VS taken and recorded. Right groin site dry and intact, no hematoma/erythema present. Good ROM, sensation. Bed rest initiated per order. Call saenz within easy reach. Dr. Grajeda visits. Will continue to monitor.
[2017-08-06] MEDS ORDERED: NITROGLYCERIN 2% OINTMENT 30GM TUBE EXT SCH (18:00)
--- NOTE | 2017-08-06 18:23 | Progress Note ---
Internal Med Progress Note Date of Service: Aug 06, 2017. Provider Documentation: SUBJECTIVE: Patient seen and assessed after cardiac cath. Denies acute pain. 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 The left circumflex artery has a 50% stenosis in its mid segment. Right coronary artery is dominant. The right coronary artery either has calcifications proximally or there could be a previous intracoronary stent. The right coronary artery is widely patent. The mid PDA has a 50% stenosis. The LAD has tapering at its origin from the aorta. There is diffuse minor disease proximally with the artery becoming smaller, which travels distally to the apex of the heart. There is normal left ventricular systolic function." Will continue medical management of Coronary artery disease / HTN with: beta chasity, aspirin, statin, Lasix, Lisinopril Diabetes Mellitus with HbA1c 12.4 07/17/17 was given reduced units of Lantus this AM prior to cardiac cath, continue to trend glucose and insulin as needed COPD - stable, no signs of acute exacerbation - continue home inhalers GERD - continue PPI and Carafate DVT prophylaxis: Off heparin drip, will start Lovenox 40 mg daily tomorrow Disposition: Will continue to monitor patient on telemetry and possible discharge tomorrow Vital Signs: Date Time Temp Pulse Resp B/P (MAP) Pulse Ox O2 Delivery O2 Flow Rate FiO2 08/06/17 17:45 36.6 68 22 110/58 (75) 94 08/06/17 16:45 36.5 74 18 119/81 (94) 97 Room Air 08/06/17 16:15 36.5 66 20 132/89 (103) 99 Nasal Cannula 6.0 08/06/17 16:00 Nasal Cannula 2.0 08/06/17 15:48 36.6 67 20 128/68 (88) 100 Nasal Cannula 6.0 08/06/17 15:30 36.7 65 18 134/68 (90) 93 3.0 08/06/17 15:15 36.7 69 18 141/74 (96) 89 3.0 08/06/17 15:14 36.7 69 17 119/64 (82) 96 2.0 08/06/17 14:55 62 16 156/80 (105) 98 Room Air 08/06/17 14:50 Room Air 08/06/17 14:45 Room Air 08/06/17 14:40 60 16 150/79 (102) 97 Room Air 08/06/17 12:00 Nasal Cannula 2.0 08/06/17 11:17 36.7 61 18 129/58 (81) 94 Nasal Cannula 2.0 08/06/17 08:00 Nasal Cannula 2.0 08/06/17 07:38 36.9 68 19 126/77 (93) 96 Nasal Cannula 2.0 08/06/17 04:38 36.5 68 20 114/73 (87) 97 Nasal Cannula 3.0 08/06/17 04:00 Room Air 08/06/17 04:00 96 Room Air 08/06/17 00:17 37.2 74 18 137/71 (93) 98 Nasal Cannula 3.0 08/06/17 00:00 37.0 71 20 146/85 (105) 95 Room Air 08/06/17 00:00 96 Room Air 08/05/17 20:00 80 20 109/53 (71) 94 Nasal Cannula 2.0 08/05/17 20:00 94 Room Air 08/05/17 19:57 78 20 103/59 (74) 94 Nasal Cannula 2.0 08/05/17 19:47 78 20 109/57 (74) 95 Nasal Cannula 2.0 08/05/17 19:42 73 20 137/71 (93) 96 Room Air 08/05/17 19:37 37.1 72 20 107/59 (75) 94 Room Air Lab Results: Results Past 24 Hours Test 08/05/17 20:16 08/05/17 20:38 08/05/17 23:43 08/06/17 00:00 Range/Units Activated Partial Thromboplast Time 38.5 21.0-31.0 SECONDS Partial Thromboplastin Ratio 1.5 Creatine Kinase MB 1.6 0.5-3.6 ng/ml Troponin I < 0.015 0-0.045 ng/ml Bedside Glucose 132 148 70-90 mg/dl Creatine Kinase MB Ratio 0-3.0 Test 08/06/17 00:09 08/06/17 02:59 08/06/17 03:37 08/06/17 05:57 Range/Units Creatine Kinase MB 1.5 0.5-3.6 ng/ml Troponin I < 0.015 0-0.045 ng/ml Bedside Glucose 169 188 70-90 mg/dl White Blood Count 7.42 4.8-10.8 K/uL Red Blood Count 4.24 4.2-5.4 M/uL Hemoglobin 13.2 12.0-16.0 g/dL Hematocrit 38.4 37-47 % Mean Corpuscular Volume 90.6 80-100 fL Mean Corpuscular Hemoglobin 31.1 25-34 pg Mean Corpuscular Hemoglobin Concent 34.4 32-36 g/dl Platelet Count 172 130-400 K/uL Mean Platelet Volume 11.4 7.4-10.4 fL Neutrophils (%) (Auto) 41.5 % Lymphocytes (%) (Auto) 48.8 % Monocytes (%) (Auto) 6.7 % Eosinophils (%) (Auto) 2.3 % Basophils (%) (Auto) 0.4 % Neutrophils # (Auto) 3.08 1.4-6.5 K/uL Lymphocytes # (Auto) 3.62 1.2-3.4 K/uL Monocytes # (Auto) 0.50 0.11-0.59 K/uL Eosinophils # (Auto) 0.17 0-0.5 K/uL Basophils # (Auto) 0.03 0-0.2 K/uL RDW Standard Deviation 42.2 36.4-46.3 fL RDW Coefficient of Variation 12.9 11.5-14.5 % Immature Granulocyte % (Auto) 0.3 % Immature Granulocyte # (Auto) 0.02 0.00-0.02 K/uL Activated Partial Thromboplast Time 93.7 21.0-31.0 SECONDS Partial Thromboplastin Ratio 3.6 Sodium Level 136 136-145 mmol/L Potassium Level 3.5 3.5-5.1 mmol/L Chloride Level 102 98-107 mmol/L Carbon Dioxide Level 26 21-32 mmol/L Anion Gap 8.0 3-11 mmol/L Blood Urea Nitrogen 18 7-18 mg/dl Creatinine 0.69 0.60-1.20 mg/dl Est Creatinine Clear Calc Drug Dose 83.5 ml/min Estimated GFR () 104.4 Estimated GFR (Non- 90.1 BUN/Creatinine Ratio 26.4 10-20 Random Glucose 189 70-99 mg/dl Calcium Level 9.1 8.5-10.1 mg/dl Triglycerides Level 335 0-150 mg/dl Cholesterol Level 153 0-200 mg/dl HDL Cholesterol 39 mg/dl LDL Cholesterol, Calculated 47 mg/dl VLDL Cholesterol, Calculated 67 mg/dl Cholesterol/HDL Ratio 3.9 Test 08/06/17 11:55 08/06/17 11:56 08/06/17 16:13 Range/Units Bedside Glucose 206 139 70-90 mg/dl Activated Partial Thromboplast Time 48.3 21.0-31.0 SECONDS Partial Thromboplastin Ratio 1.9
--- NOTE | 2017-08-06 18:30 | ECHOCARDIOGRAM REPORT ---
*NOTICE TO RECEIVING DEMOCRAT AGENCY This information is strictly Confidential and protected under [place] law. [place] law prohibits you from making any further disclosure of this information unless further disclosure is expressly permitted by the written consent of the person to whom it pertains or is authorized by law. A general authorization for the release of medical or other information is not sufficient for this purpose. Hospital accepts no responsibility if the information is made available to any other person, INCLUDING THE PATIENT. Interpretation Summary * Name: SAM SURESH Study Date: 08/05/2017 02:42 PM BP: 164/98 mmHg * Patient Location: [facility] HR: 81 * : 1950 (M/d/yyyy) Gender: Female Height: 64 in * Age: 67 yrs Ethnicity: CA Weight: 194 lb * Ordering Physician: Amada Grande * Referring Physician: Vaishnavi Dent PA-C * Performed By: Ruby Amin RCS * * Reason For Study: CHEST PAIN * BSA: 1.9 m2 * -- Conclusions -- * The left ventricle is normal in size. * There is moderate concentric left ventricular hypertrophy. * Left ventricular systolic function is normal. * Ejection Fraction = 50-55%. * The right ventricular systolic function is normal. * The left atrial size is normal. * Right atrial size is normal. Procedure Details * A complete two-dimensional transthoracic echocardiogram was performed (2D, M-mode, Doppler and color flow Doppler). Left Ventricle * The left ventricle is normal in size. * There is moderate concentric left ventricular hypertrophy. * Left ventricular systolic function is normal. * Ejection Fraction = 50-55%. * The left ventricular wall motion is normal. Right Ventricle * The right ventricle is normal size. * The right ventricular systolic function is normal. Atria * The left atrial size is normal. * Right atrial size is normal. * No ASD detected; PFO is not assessed. Mitral Valve * The mitral valve anatomy is normal. * Significant mitral regurgitation is absent. Tricuspid Valve * The tricuspid valve anatomy is normal. * Significant tricuspid regurgitation is absent. Aortic Valve * The aortic valve is tricuspid. The leaflet thickness if normal. There is no aortic stenosis, and no significant insufficiency. * No hemodynamically significant valvular aortic stenosis. * There is no significant aortic regurgitation. Great Vessels * The aortic root and proximal ascending aorta are normal sized. Pericardium/Pleural * There is no pericardial effusion. MMode 2D Measurements and Calculations IVSd 1.3 cm IVSs 1.5 cm LVIDd 4.2 cm LVIDs 3.2 cm LVPWd 1.2 cm LVPWs 1.5 cm IVS/LVPW 1.1 FS 23.1 % EDV(Teich) 79.4 ml ESV(Teich) 42.4 ml EF(Teich) 46.6 % EDV(cubed) 75.1 ml ESV(cubed) 34.2 ml EF(cubed) 54.5 % % IVS thick 9.1 % % LVPW thick 20.0 % LV mass(C)d 198.4 grams LV mass(C)dI 102.8 grams/m\S\2 LV mass(C)s 168.9 grams LV mass(C)sI 87.5 grams/m\S\2 SV(Teich) 37.0 ml SI(Teich) 19.2 ml/m\S\2 SV(cubed) 40.9 ml SI(cubed) 21.2 ml/m\S\2 Ao root diam 2.5 cm Ao root area 5.0 cm\S\2 LA dimension 3.2 cm LA/Ao 1.3 LVOT diam 2.0 cm LVOT area 3.3 cm\S\2 LVAd ap4 28.0 cm\S\2 LVLd ap4 7.4 cm EDV(MOD-sp4) 85.8 ml EDV(sp4-el) 89.7 ml LVAs ap4 16.8 cm\S\2 LVLs ap4 5.9 cm ESV(MOD-sp4) 40.0 ml ESV(sp4-el) 40.3 ml EF(MOD-sp4) 53.4 % EF(sp4-el) 55.1 % LVAd ap2 27.0 cm\S\2 LVLd ap2 6.9 cm EDV(MOD-sp2) 85.3 ml EDV(sp2-el) 88.9 ml LVAs ap2 17.8 cm\S\2 LVLs ap2 6.0 cm ESV(MOD-sp2) 45.4 ml ESV(sp2-el) 44.9 ml EF(MOD-sp2) 46.8 % EF(sp2-el) 49.5 % LVLd %diff -70 % EDV(MOD-bp) 88.4 ml LVLs %diff 0.75 % ESV(MOD-bp) 42.7 ml EF(MOD-bp) 51.7 % SV(MOD-sp4) 45.8 ml SI(MOD-sp4) 23.7 ml/m\S\2 SV(MOD-sp2) 39.9 ml SI(MOD-sp2) 20.7 ml/m\S\2 SV(MOD-bp) 45.7 ml SI(MOD-bp) 23.7 ml/m\S\2 SV(sp4-el) 49.4 ml SI(sp4-el) 25.6 ml/m\S\2 SV(sp2-el) 44.0 ml SI(sp2-el) 22.8 ml/m\S\2 Doppler Measurements and Calculations MV E max lyle 84.7 cm/sec MV A max lyle 103.0 cm/sec MV E/A 0.82 MV P1/2t max lyle 89.7 cm/sec MV P1/2t 73.9 msec MVA(P1/2t) 3.0 cm\S\2 MV dec slope 355.5 cm/sec\S\2 MV dec time 0.21 sec Ao V2 max 134.6 cm/sec Ao max PG 7.2 mmHg Ao max PG (full) 2.5 mmHg MORGAN(V,A) 2.7 cm\S\2 MORGAN(V,D) 2.7 cm\S\2 LV V1 max PG 4.7 mmHg LV V1 max 108.9 cm/sec PA V2 max 133.7 cm/sec PA max PG 7.2 mmHg
--- NOTE | 2017-08-06 20:00 | NUR ---
A/ID: Patient is alert and oriented x4. Denies pain or SOB. VSS. Right groin cath site is dry and intact, no bruising or hematoma noted. Post cath dressing intact with no shadowing or drainage noted. Radial and pedal pulses palpable bilaterally. Sinus rhythm on heart monitor. IV intact with NSS infusing at 75mL/hr. Please see EMR for further assessment documentation. All needs met, call saenz within reach before leaving room.
[2017-08-07] MEDS: SODIUM CHLORIDE 0.9% 1000ML 1,000 ML IV SCH ×2 (02:15→07:42)
--- NOTE | 2017-08-07 04:00 | NUR ---
A: Assessment remains unchanged. Please see EMR for further assessment documentation. All needs met, call saenz within reach before leaving room.
[2017-08-07] MEDS: INSULIN ASPART 100 UNITS/ML 3 ML PEN SC SCH ×4 (04:32→11:38)
[2017-08-07 04:49] VITALS: BP 140/66; PULSE 71; TEMP 36.5; O2SAT 97
[2017-08-07 05:57] LABS: PTT PATIENT 26.4 SECONDS (21.0-31.0)
[2017-08-07] MEDS: SUCRALFATE 1 GM TAB PO SCH ×2 (07:43→11:37)
[2017-08-07] MEDS: COLCHICINE 0.6 MG TAB PO SCH (07:44)
[2017-08-07] MEDS: GABAPENTIN 400 MG CAP PO SCH ×2 (07:44→13:41)
[2017-08-07] MEDS: ASPIRIN 81 MG ECTAB PO SCH (07:47)
[2017-08-07] MEDS: METOPROLOL TARTRATE 25 MG TAB PO SCH (07:47)
[2017-08-07] MEDS: PANTOprazole SOD 40 MG TAB PO SCH (07:47)
[2017-08-07] MEDS: ALLOPURINOL 100 MG TAB PO SCH (07:47)
[2017-08-07] MEDS: LISINOPRIL 10 MG TAB PO SCH (07:47)
[2017-08-07] MEDS: ATORVASTATIN 40 MG TAB PO SCH (07:47)
[2017-08-07] MEDS: SERTRALINE HCL 100 MG TAB PO SCH (07:48)
[2017-08-07] MEDS: FLUTICASONE/SALMETEROL 250/50 (ADVAIR) 14 PUFF/1 INHALER INH SCH (07:48)
[2017-08-07] MEDS: FUROSEMIDE 20 MG TAB PO SCH (07:48)
[2017-08-07] MEDS: INSULIN GLARGINE SC SCH (07:57)
[2017-08-07 08:00] VITALS: BP 141/73; PULSE 76; TEMP 36.7; O2SAT 94
--- NOTE | 2017-08-07 08:00 | NUR ---
Patient alert and oriented sitting on edge of bed eating breakfast. Patient tolerating breakfast well and took all pills this morning. Patient completed a 2step test this morning and will not be needing o2 upon discharge. IV patent infusing NSS @75. notified to see if fluids can be d/c'd due to the patient adequately taking in PO liquids. Patient denies CP. Patient remains SR on monitor. BP stable. Right groin heart cath site intact. no drainage or hematoma noted. Patient cleaned up in the bathroom. Patient denies any needs at this time. VS stable. Will continue to monitor. Plans for discharge this afternoon.
[2017-08-07] MEDS ORDERED: ENOXAPARIN 40 MG/0.4 ML SYR SQ SCH (09:00)
--- NOTE | 2017-08-07 11:03 | Pharmacy Progress Note ---
Glycemic Control Progress Note Date of Service Aug 07, 2017. Scope Glycemic Pharmacist consulted for glycemic control to write orders per [facility] inpatient glycemic control protocol. Objective Accuchecks BSG (last 24hrs): Test 08/06/17 11:55 08/06/17 16:13 08/06/17 20:15 08/07/17 00:11 Bedside Glucose 206 mg/dl (70-90) 139 mg/dl (70-90) 172 mg/dl (70-90) 146 mg/dl (70-90) Test 08/07/17 03:58 08/07/17 06:33 Bedside Glucose 192 mg/dl (70-90) 202 mg/dl (70-90) HbA1c: 12.4% per provider Recent Pertinent Medications The patient is currently receiving: * Basal insulin: Lantus 10 units in AM + 45 units in the PM yesterday; ongoing order is for 45 units BID * Correctional Insulin: Novolog Correction per scale ACHS Goal Range: Low 120 mg/dL - High 150 mg/dL Correction Factor: 10 mg/dL/unit * Prandial insulin: Per carb ratio of 1 unit per 3 grams CHO consumed * Oral Agents: None currently Outpatient Anti-Diabetic Meds Lantus 55 units SQ BID Novolog 55 units TID w/ meals Metformin 1gm PO BID Empagliflozin 10mg PO daily Assessment & Plan ASSESSMENT: 08/05/17 * 67 yr old T2DM female admitted with CP and hyperglycemia. * Severe hyperglycemia at time of admission, 383 mg/dL. Pt given one time IV bolus of regular insulin. * Patient takes significant doses of insulin as an outpatient (~275 units/day) plus orals with poor glycemic control evidenced; A1c of 12.4%. Patient did not take am Lantus dose today, therefore I have ordered STA dose of 55 units upon arrival to floor. I will utilize a Lantus dose per scale at HS since patient is NPO after midnight and compliance with home regimen is questionable. * Will utilize higher goal range initially per patient may experience hypoglycemia at a higher BSG value since A1c is extremely elevated 08/06/17 * Over the past 24 hrs patient has received 111 SQ insulin + 10 units IV and BSG down to 169-188 this AM * Fasting BSG elevated this AM w/ 90 units of Lantus on board, FBS 188 * Currently NPO for cardiac cath this afternoon * Glycemic [facility] had ordered 40 units of Lantus x 1 this AM (~ 30% reduction in home dose due to NPO status), however hospitalist reduced dose to 10 units (~80 % reduction in home dose). Patient's BSGs climbing despite correctional insulin administered. Most likely BSG control will continue to decline. She will likely be basal deficient for 12-24 hrs. 08/07/17 * BSGs have ranged 139-202 over the last 24 hrs * Fasting BSGs elveated this AM, 202 with 55 units of Lantus on board (~one- half of that provided by home regimen); would expected improved fasting BSG tomorrow AM after receiving full 45 BID dosage * CF may need altered slightly to allow for a few additional units for correction as CF did not lower BSGs to goal yesterday - however this may have been secondary to basal deficiency. Will make a small adjustment today. PLAN FOR INPATIENT GLYCEMIC CONTROL: * Continue Lantus 45 units SQ BID * Change correction factor to 9 mg/dl/unit * Continuing carb ratio of 1 unit per 3 grams CHO consumed * Changing goal range to Low 110 mg/dL - High 140 mg/dL * Add BSG check at 0200 tonight and cover with SQ Novolog if elevated * Please note that the plan above was derived based on current level of insulin resistance and hospital stress. These recommendations are appropriate for inpatient admission only. Plan of care upon discharge will need to be reassessed to avoid potential outpatient hypo/hyperglycemia. Thank you.
[2017-08-07 11:18] VITALS: BP 139/71; PULSE 68; TEMP 37.1; O2SAT 96
--- NOTE | 2017-08-07 11:59 | PROGRESS NOTE ---
DATE: 08/07/2017 FOLLOWUP VISIT SUBJECTIVE: The patient is a 67-year-old female who presented with chest pain and had a previous abnormal nuclear stress test. Her cardiac catheterization showed no obstructive lesions. She has had an uneventful night. Her cardiac markers are negative. OBJECTIVE: GENERAL: She is alert and oriented in no acute distress. VITAL SIGNS: Blood pressure 139/70, pulse is regular at 68. She is afebrile. HEENT: She is normocephalic. Pupils are equal and reactive to light. Extraocular muscles are intact bilaterally. NECK: The neck veins are flat. Carotids have good upstrokes bilaterally without bruits. Thyroid is nonpalpable. RESPIRATORY: Breath sounds equal bilaterally and clear to auscultation. CARDIOVASCULAR: Heart has regular rhythm. Normal S1, S2. No S3, S4. No cardiac rubs or murmurs. GASTROINTESTINAL: Abdomen is soft, nontender without organomegaly. EXTREMITIES: Free of edema, digit clubbing, or cyanosis. NEUROLOGIC: Grossly intact. SKIN: Warm to touch. LYMPH NODES: Negative to palpation. IMPRESSION: 1. Noncardiac chest pain. 2. Diabetes mellitus. 3. Mild COPD. 4. Obstructive sleep apnea. RECOMMENDATIONS: I believe the patient may be discharged to outpatient followup. I would continue her current home medications.
--- NOTE | 2017-08-07 12:00 | NUR ---
Previous assessment unchanged. Patient sitting on edge of bed eating lunch. MD at bedside. Insulin sliding scale adjusted per BSGs. IVF d/c's per MD order. Plans for patient to go home today. Patient denies CP. Patient denies any further needs at this time. Will continue to monitor.
[2017-08-07 12:01] VITALS: O2SAT 95
[2017-08-07 13:12] VITALS: BP 139/71; PULSE 68; TEMP 37.1; O2SAT 95
--- NOTE | 2017-08-07 14:08 | Progress Note ---
Internal Med Progress Note Date of Service: Aug 07, 2017. Provider Documentation: SUBJECTIVE: Patient seen and examined today. No acute complaints of chest pain or shortness of breath. 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 The left circumflex artery has a 50% stenosis in its mid segment. Right coronary artery is dominant. The right coronary artery either has calcifications proximally or there could be a previous intracoronary stent. The right coronary artery is widely patent. The mid PDA has a 50% stenosis. The LAD has tapering at its origin from the aorta. There is diffuse minor disease proximally with the artery becoming smaller, which travels distally to the apex of the heart. There is normal left ventricular systolic function." Discharge diagnosis 1. Noncardiac chest pain. 2. Diabetes mellitus. 3. Mild COPD. 4. Obstructive sleep apnea. Disposition Discharge home and follow up to 08/11/2017 7:40 AM Estela Fields [facility], [place] 08/21/2017 12:00 PM [facility] 08/25/2017 11:00 AM Vaishnavi Dent PA-C Vital Signs: Date Time Temp Pulse Resp B/P (MAP) Pulse Ox O2 Delivery O2 Flow Rate FiO2 08/07/17 13:12 37.1 68 18 95 Room Air 08/07/17 12:01 95 Room Air 08/07/17 11:18 37.1 68 18 139/71 (93) 96 Room Air 08/07/17 08:00 94 Room Air 08/07/17 08:00 36.7 76 20 141/73 (95) 94 Room Air 08/07/17 04:49 36.5 71 21 140/66 (90) 97 Nasal Cannula 2.0 08/06/17 23:57 36.8 74 19 114/58 (76) 95 Nasal Cannula 3.0 08/06/17 21:48 128/87 (101) 08/06/17 21:45 78 154/80 (104) 08/06/17 19:53 36.5 74 20 102/55 (71) 94 Room Air 08/06/17 18:57 36.6 76 18 104/52 (69) 94 Room Air 08/06/17 17:45 36.6 68 22 110/58 (75) 94 08/06/17 16:45 36.5 74 18 119/81 (94) 97 Room Air 08/06/17 16:15 36.5 66 20 132/89 (103) 99 Nasal Cannula 6.0 08/06/17 16:00 Nasal Cannula 2.0 08/06/17 15:48 36.6 67 20 128/68 (88) 100 Nasal Cannula 6.0 08/06/17 15:30 36.7 65 18 134/68 (90) 93 3.0 08/06/17 15:15 36.7 69 18 141/74 (96) 89 3.0 08/06/17 15:14 36.7 69 17 119/64 (82) 96 2.0 08/06/17 14:55 62 16 156/80 (105) 98 Room Air 08/06/17 14:50 Room Air 08/06/17 14:45 Room Air 08/06/17 14:40 60 16 150/79 (102) 97 Room Air Lab Results: Results Past 24 Hours Test 08/06/17 16:13 08/06/17 20:15 08/07/17 00:11 08/07/17 03:58 Range/Units Bedside Glucose 139 172 146 192 70-90 mg/dl Test 08/07/17 05:29 08/07/17 06:33 08/07/17 11:17 Range/Units Activated Partial Thromboplast Time 26.4 21.0-31.0 SECONDS Partial Thromboplastin Ratio 1.0 Bedside Glucose 202 187 70-90 mg/dl
--- NOTE | 2017-08-07 14:12 | Discharge Instructions ---
Discharge Instructions Date of Service Aug 07, 2017. Admission Reason for Admission: Chest Pain Discharge Discharge Diagnosis / Problem: noncardiac chest pain, DM, Mild COPD, Obstructive Sleep apnea Discharge Goals Goal(s): Decrease discomfort, Improve function Activity Recommendations Activity Limitations: resume your previous activity Shower/Bathe: no limitations . 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 The left circumflex artery has a 50% stenosis in its mid segment. Right coronary artery is dominant. The right coronary artery either has calcifications proximally or there could be a previous intracoronary stent. The right coronary artery is widely patent. The mid PDA has a 50% stenosis. The LAD has tapering at its origin from the aorta. There is diffuse minor disease proximally with the artery becoming smaller, which travels distally to the apex of the heart. There is normal left ventricular systolic function." Discharge diagnosis 1. Noncardiac chest pain. 2. Diabetes mellitus. 3. Mild COPD. 4. Obstructive sleep apnea. Disposition Discharge home and follow up to 08/11/2017 7:40 AM Estela Fields [facility], [place] 08/21/2017 12:00 PM [facility], [facility] 08/25/2017 11:00 AM Vaishnavi Dent PA-C Current Hospital Diet Patient's current hospital diet: AHA Diet (Heart Healthy), Diabetes Type 2 Diet , Low Sodium Diet (2gm Na) Discharge Diet Recommended Diet: AHA Diet (Heart Healthy), Low Sodium Diet (2gm Na), Diabetes Type 2 Diet Pending Studies Studies pending at discharge: no Laboratory Results 08/06/17 03:37 Red Blood Count 4.24, Mean Corpuscular Volume 90.6, Mean Corpuscular Hemoglobin 31.1, Mean Corpuscular Hemoglobin Concent 34.4, Mean Platelet Volume 11.4, Neutrophils (%) (Auto) 41.5, Lymphocytes (%) (Auto) 48.8, Monocytes (%) (Auto) 6.7, Eosinophils (%) (Auto) 2.3, Basophils (%) (Auto) 0.4, Neutrophils # (Auto) 3.08, Lymphocytes # (Auto) 3.62, Monocytes # (Auto) 0.50, Eosinophils # (Auto) 0.17, Basophils # (Auto) 0.03 08/06/17 03:37 Test 08/05/17 11:15 08/05/17 13:08 08/06/17 00:00 08/06/17 00:09 Prothrombin Time 10.0 SECONDS (9.0-12.0) Prothromb Time International Ratio 1.0 (0.9-1.1) Total Bilirubin 0.4 mg/dl (0.2-1) Aspartate Amino Transf (AST/SGOT) 25 U/L (15-37) Alanine Aminotransferase (ALT/SGPT) 44 U/L (12-78) Alkaline Phosphatase 97 U/L (45-117) Total Creatine Kinase 95 U/L (26-192) Total Protein 7.6 gm/dl (6.4-8.2) Albumin 3.8 gm/dl (3.4-5.0) Globulin 3.8 gm/dl (2.5-4.0) Albumin/Globulin Ratio 1.0 (0.9-2) Beta-Hydroxybutyric Acid 1.74 mg/dL (0.2-2.81) Bedside Troponin I < 0.030 ng/ml (0-0.045) Creatine Kinase MB Ratio (0-3.0) Creatine Kinase MB 1.5 ng/ml (0.5-3.6) Troponin I < 0.015 ng/ml (0-0.045) Test 08/06/17 03:37 08/07/17 05:29 08/07/17 11:17 White Blood Count 7.42 K/uL (4.8-10.8) Red Blood Count 4.24 M/uL (4.2-5.4) Hemoglobin 13.2 g/dL (12.0-16.0) Hematocrit 38.4 % (37-47) Mean Corpuscular Volume 90.6 fL (80-100) Mean Corpuscular Hemoglobin 31.1 pg (25-34) Mean Corpuscular Hemoglobin Concent 34.4 g/dl (32-36) Platelet Count 172 K/uL (130-400) Mean Platelet Volume 11.4 fL (7.4-10.4) Neutrophils (%) (Auto) 41.5 % Lymphocytes (%) (Auto) 48.8 % Monocytes (%) (Auto) 6.7 % Eosinophils (%) (Auto) 2.3 % Basophils (%) (Auto) 0.4 % Neutrophils # (Auto) 3.08 K/uL (1.4-6.5) Lymphocytes # (Auto) 3.62 K/uL (1.2-3.4) Monocytes # (Auto) 0.50 K/uL (0.11-0.59) Eosinophils # (Auto) 0.17 K/uL (0-0.5) Basophils # (Auto) 0.03 K/uL (0-0.2) RDW Standard Deviation 42.2 fL (36.4-46.3) RDW Coefficient of Variation 12.9 % (11.5-14.5) Immature Granulocyte % (Auto) 0.3 % Immature Granulocyte # (Auto) 0.02 K/uL (0.00-0.02) Anion Gap 8.0 mmol/L (3-11) Est Creatinine Clear Calc Drug Dose 83.5 ml/min Estimated GFR () 104.4 Estimated GFR (Non- 90.1 BUN/Creatinine Ratio 26.4 (10-20) Calcium Level 9.1 mg/dl (8.5-10.1) Triglycerides Level 335 mg/dl (0-150) Cholesterol Level 153 mg/dl (0-200) HDL Cholesterol 39 mg/dl LDL Cholesterol, Calculated 47 mg/dl VLDL Cholesterol, Calculated 67 mg/dl Cholesterol/HDL Ratio 3.9 Activated Partial Thromboplast Time 26.4 SECONDS (21.0-31.0) Partial Thromboplastin Ratio 1.0 Bedside Glucose 187 mg/dl (70-90) Lipid Panel Test 08/06/17 03:37 Range/Units Triglycerides Level 335 H 0-150 mg/dl Cholesterol Level 153 0-200 mg/dl HDL Cholesterol 39 mg/dl Cholesterol/HDL Ratio 3.9 LDL Cholesterol, Calculated 47 mg/dl Medical Emergencies . Who to Call and When: Medical Emergencies: If at any time you feel your situation is an emergency, please call 911 immediately. . Non-Emergent Contact Non-Emergency issues call your: Primary Care Provider, Water Resources Program Director . . "Provider Documentation" section prepared by Anibal Johns. . VTE Core Measure Inpt VTE Proph given/why not?: SCD's
--- NOTE | 2017-08-07 14:14 | Discharge Summary ---
Discharge Summary Date of Service Aug 07, 2017. Discharge Summary Admission Date: Aug 05, 2017 at 13:52 Discharge Date: Aug 07, 2017 Discharge Disposition: Home Principal Diagnosis: 1. Noncardiac chest pain. 2. Diabetes mellitus. 3. Mild COPD. 4. Obstructive sleep apnea. Consultations: cardiology Medication Reconciliation Continued Medications: Albuterol Sulfate (Proair Respiclick) 108 Mcg/Act Aer 2 PUFFS INH QID PRN for SOB/Wheezing Allopurinol (Zyloprim) 100 Mg Tab 1 TAB PO DAILY for gout for 30 Days, #30 TAB 5 Refills Aspirin (Aspirin EC Low Dose) 81 Mg Ectab 81 MG PO DAILY Atorvastatin (Lipitor) 40 Mg Tab 1 TAB PO DAILY for 30 Days, #30 TAB 5 Refills Colchicine (Colchicine) 0.6 Mg Cap 0.6 MG PO BID Empagliflozin (Jardiance) 10 Mg Tab 10 MG PO DAILY Fluticasone Prop/Salmeterol (Advair Diskus 250/50 60 Dose) 1 Ea Aerp 1 PUFF INH BID, INHALER Furosemide (Lasix) 20 Mg Tab 1 TAB PO DAILY for 90 Days, #90 TAB 1 Refill Gabapentin (Neurontin) 400 Mg Cap 1 CAP PO TID for 30 Days, #90 CAP 1 Refill Insulin Aspart (Novolog) 100 Units/Ml Inj 55 UNITS SQ TIDM Insulin Glargine (Lantus) 100 Unit/Ml Inj 55 UNITS SC BID, VIAL Lisinopril (Prinivil) 30 Mg Tab 30 MG PO DAILY, TAB Metformin Hcl (Glucophage) 1,000 Mg Tab 1000 MG PO BID, TAB Pantoprazole (Protonix) 40 Mg Tab 40 MG PO DAILY, #30 TAB Polyethylene Glycol 3350 (Miralax) 1 Pow Pow 17 GM PO BID PRN for Constipation, #527 GM Sertraline (Zoloft) 100 Mg Tab 1 TAB PO DAILY for 90 Days, #90 TAB 1 Refill Sucralfate (Carafate) 1 Gm Tab 1 TAB PO ACHS for 30 Days, TAB 1 Refill Admission Information HPI (per Admitting provider): 67 year old female who was referred to the ED from the cardiology office for chest pain. Patient reports a long standing history of chest pain and exertional shortness of breath for the past several months. Patient underwent stress testing last week that was abnormal suggesting anterior ischemia. Patient was on her way to a scheduled cardiology appointment today to discuss the results when she developed chest pain in the car. Patient reports this episode was the most severe she has experienced. She reports it was located midsternally and describes it as a pressure. She rated it #6/10. No radiation of the pain into the neck, jaw, or arm. She reports associated lightheadedness and dizziness. No syncopal events. She denies nausea and diaphoresis. She was given SL nitro in the cardiology office and has significant improvement in the pain however not resolution. EKG was obtained that showed ST depressions in the inferior leads. She was then referred to the ED for further evaluation. Patient reports she otherwise has been feeling well recently. She denies lower extremity edema and orthopnea. No fevers or chills. She denies abdominal pain, vomiting, or diarrhea. No urinary symptoms. In the ED, EKG was obtained showing mild ST depressions in the anterolateral leads. Initial troponin is negative. Patient is hemodynamically stable. Physical Exam (per Admitting): General Appearance: WD/WN, no apparent distress Head: normocephalic, atraumatic Eyes: normal inspection, EOMI, sclerae normal ENT: hearing grossly normal, + pertinent finding (mucous membranes moist) Neck: supple, no JVD, trachea midline Respiratory/Chest: lungs clear, normal breath sounds, no respiratory distress Cardiovascular: regular rate, rhythm, no edema, normal peripheral pulses Abdomen/GI: normal bowel sounds, non tender, soft, no organomegaly Extremities/Musculoskelatal: normal inspection, no calf tenderness Neurologic/Psych: no motor/sensory deficits, alert, normal mood/affect, oriented x 3 Skin: normal color, warm/dry Hospital Course Patient s/p cardiac on 08/06/17 As per cardiology review of the cath report "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 The left circumflex artery has a 50% stenosis in its mid segment. Right coronary artery is dominant. The right coronary artery either has calcifications proximally or there could be a previous intracoronary stent. The right coronary artery is widely patent. The mid PDA has a 50% stenosis. The LAD has tapering at its origin from the aorta. There is diffuse minor disease proximally with the artery becoming smaller, which travels distally to the apex of the heart. There is normal left ventricular systolic function." Discharge diagnosis 1. Noncardiac chest pain. 2. Diabetes mellitus. 3. Mild COPD. 4. Obstructive sleep apnea. Disposition Discharge home and follow up to 08/11/2017 7:40 AM Estela Fields [facility], [place] 08/21/2017 12:00 PM [facility], [facility] 08/25/2017 11:00 AM Vaishnavi Dent PA-C Total time spent on discharge = 60 minutes This includes examination of the patient, discharge planning, medication reconciliation, and communication with other providers. Discharge Instructions see above
--- NOTE | 2017-08-07 14:28 | NUR ---
Discharge instructions given to patient. Patient verbalized understanding. IV removed. compliance monitor d/c'd. Patient up in room getting dressed. Family at bedside.
--- NOTE | 2017-08-07 14:35 | NUR ---
Patient left in a wheelchair with all belongings. Family with patient.
[2017-08-08] MEDS ORDERED: INSULIN ASPART 100 UNITS/ML 3 ML PEN SC ONE (02:00)
--- NOTE | 2017-08-11 09:26 | EDITING REQUIRED CODING QUERY ---
CHEST PAIN To promote full compliance with coding requirements relating to patient care physician participation is requested in all cases of stereo equipment repairer uncertainty. Please assist us with the question(s) below: Please list a more specific chest pain diagnosis or cause of chest pain if known by placing an X within the parenthesis (x): (x) Atypical Chest Pain ( ) Chest Wall Pain ( ) Midsternal Chest Pain ( ) Musculoskeletal Chest Pain ( ) Pleuritic Chest Pain ( ) Substernal Chest Pain ( ) Costochondral Chest Pain ( ) Other (please Specify) ( ) Unable to Determine Thank you ALBINA Boss CCS
== END 2017-08-07 14:43 | disposition home or self-care (01) | DRG 287 ==
LOC: EDBD 11:07 → C.EDA 11:08 → C.2E 13:52 → ENRESERV 14:00
PROVIDERS: ADMIT Internal Medicine; ATTEND Hospitalist
PROC: B2151ZZ Fluoroscopy of Left Heart using Low Osmolar Contrast (ICD-10-PCS; principal; 2017-08-06 13:50)
PROC: 4A023N7 Measurement of Cardiac Sampling and Pressure, Left Heart, Percutaneous Approach (ICD-10-PCS; principal; 2017-08-06 13:50)
PROC: B2111ZZ Fluoroscopy of Multiple Coronary Arteries using Low Osmolar Contrast (ICD-10-PCS; principal; 2017-08-06 13:50)
DX: R07.89 Other chest pain (principal); Q24.5 Malformation of coronary vessels; I25.10 Atherosclerotic heart disease of native coronary artery without angina pectoris; J44.9 Chronic obstructive pulmonary disease, unspecified; G47.33 Obstructive sleep apnea (adult) (pediatric); E11.42 Type 2 diabetes mellitus with diabetic polyneuropathy; I10 Essential (primary) hypertension; Z83.3 Family history of diabetes mellitus; Z87.891 Personal history of nicotine dependence; Z79.4 Long term (current) use of insulin